=== PATIENT | male | born 1985 | race Caucasian/White ===

== ENCOUNTER 2019-01-13 08:28 | Emergency (ER) | payer OTHER ==
[2019-01-13 08:43] VITALS: BP 133/92
[2019-01-13] MEDS ORDERED: Ibuprofen TAB* 600 MG PO ONE (09:02)
[2019-01-13] MEDS ORDERED: Tetan/Diph/Pertus SYR(Tdap)* 0.5 ML SYR(BOOSTRIX) use SYR contains LATEX IM ONE (09:04)
--- NOTE | 2019-01-13 09:27 | UC ---
Laceration HPI - HPI Summary HPI Summary: WHILE AT WORK TODAY PATIENT WAS COMING DOWN A LADDER WITH A BOX BRACKET IN HIS HAND WHEN IT GOT CAUGHT ON THE CEILING AND HE SUSTAINED A LACERATION TO HIS RIGHT INDEX FINGER. UNKNOWN DATE OF LAST TETANUS. - History Of Current Complaint Chief Complaint: UCLaceration Stated Complaint: FINGER LAC Time Seen by Provider: 01/13/19 09:01 Hx Obtained From: Patient Laceration Location: Finger - RIGHT INDEX Mechanism Of Injury: Sharp Trauma Onset/Duration: Sudden Onset, Lasting Hours, Still Present Severity: Moderate Pain Intensity: 5 Pain Scale Used: 0-10 Numeric Aggravating Factors: Movement Related History: Occupational Injury, Dominant Hand Right - Allergies/Home Medications Allergies/Adverse Reactions: Allergies Allergy/AdvReac Type Severity Reaction Status Date / Time ciprofloxacin Allergy Swelling Verified 01/13/19 08:44 Home Medications: Home Medications Ibuprofen 400 mg PO ONCE PRN 01/13/19 [History Confirmed 01/13/19] PMH/Surg Hx/FS Hx/Imm Hx Previously Healthy: Yes Other History Of: Negative For: HIV, Hepatitis B, Hepatitis C - Surgical History Surgical History: Yes Surgery Procedure, Year, and Place: left hernia repair as a child, bunion 2009 with f/u 2010 - Family History Known Family History: Negative: Seizure Disorder, Blood Disorder - Social History Alcohol Use: Occasionally Alcohol Amount: M-Th 2/day FRI-SUN 6/day Substance Use Type: Marijuana Smoking Status (MU): Never Smoked Tobacco - Immunization History Most Recent Influenza Vaccination: never Most Recent Tetanus Shot: UTD Review of Systems All Other Systems Reviewed And Are Negative: Yes Constitutional: Positive: Negative Skin: Positive: Other - LACERATION RIGHT INDEX FINGER Respiratory: Positive: Negative Cardiovascular: Positive: Negative Gastrointestinal: Positive: Negative Musculoskeletal: Positive: Edema Physical Exam Triage Information Reviewed: Yes Appearance: Well-Appearing, No Pain Distress, Well-Nourished Vital Signs: Initial Vital Signs Temp 99.5 F 01/13/19 08:39 Pulse 69 01/13/19 08:39 Resp 18 01/13/19 08:39 BP 133/92 01/13/19 08:39 Pulse Ox 99 01/13/19 08:39 Vital Signs Reviewed: Yes Eyes: Positive: Conjunctiva Clear ENT: Positive: Hearing grossly normal Neck: Positive: Supple Respiratory: Positive: No respiratory distress, No accessory muscle use Cardiovascular: Positive: Pulses Normal Abdomen Description: Positive: Soft Musculoskeletal: Positive: No Edema, ROM Limited @ - RIGHT INDEX FINGER Neurological: Positive: Alert Psychological: Positive: Age Appropriate Behavior Skin: Positive: Other - 3CM LINEAR LACERATION VOLAR ASPECT RIGHT INDEX FINER OVERLYING PROXIMAL PHALANX Laceration Repair - Laceration Repair 1 Description: Linear Laceration Size After Repair: Length (cm) - 3CM, Width (mm) - 0MM, Depth (mm) - 3MM Modified For Repair: No Type Injection: Digital Anesthesia Used: 1.0% Lido Irrigation With Pressure Irrigation Device: Yes Closure Material: Sutures - 8 SIMPLE INTERRUPTED SUTURES Closure Method: Single Layer Suture Of: Skin Suture Type: Prolene - 5-0 Laceration Course/Dx - Course/Dx Course Of Treatment: LACERATION CLEANED AND DRAPED IN STERILE FASHION. TIMEOUT COMPLETE. 8 SUTURES PLACED WITHOUT DIFFICULTY. PATIENT IS ABLE TO FLEX HIS FINGER BUT IS LIMITED LIKELY DUE TO SWELLING AND THE WOUND ITSELF. ADVISED TO ENSURE THAT HE HAS FULL RANGE OF MOTION HIS WOUND IS HEALING AND IF NOT HE IS TO FOLLOW-UP WITH ORTHOPEDICS. COUNSELED ON FINDINGS AND SYMPTOMS OF INFECTION TO LOOK FOR. TDAP BOOSTED TODAY. - Diagnosis Provider Diagnosis: Laceration of right index finger Discharge ED - Sign-Out/Discharge Documenting (check all that apply): Patient Departure All imaging exams completed and their final reports reviewed: No Studies - Discharge Plan Condition: Stable Disposition: HOME Patient Education Materials: Laceration (ED) Forms: *Work Release Referrals: [facility] [Outside] - If Needed Abbey Hastings MD [Medical Doctor] - If Needed Additional Instructions: KEEP DRESSINGS IN PLACE AND DRY FOR THE FIRST 24 HRS. THEN YOU MAY REMOVE THE DRESSING AND GENTLY CLEANSE WITH SOAP AND WATER. PAT DRY AND RE-BANDAGE. APPLY THIN LAYER ANTIBIOTIC OINTMENT UNDER BANDAGE FOR FIRST 3-4 DAYS ONLY. I RECOMMEND AVOIDING NEOMYCIN CONTAINING PRODUCTS THEY CAN BE HIGHLY ALLERGENIC. CHANGE BANDAGE DAILY AND NEEDED IF IT BECOMES SOILED OR WET. SEEK FOLLOW-UP IF YOU DEVELOP SPREADING REDNESS OF THE SKIN, PURULENT DRAINAGE, FEVER, INCREASED PAIN OR ANY OTHER CONCERNING SYMPTOMS. RETURN TO HAVE YOUR 8 SUTURES REMOVED IN 10 DAYS IF YOU DO NOT HAVE FULL ROM BE SURE TO FOLLOW-UP WITH ORTHOPEDICS. TETANUS IMMUNIZATION GIVEN (TDAP): You have been given an immunization against tetanus. Please record this in your records. In general, a booster is needed only once every 10 years. The tetanus shot protects against tetanus or "lockjaw," which is a complication of certain wound infections (the tetanus shot cannot protect against the actual infection). The immunization site may become warm and red due to local reaction. If this occurs, apply warm compresses and take aspirin or ibuprofen to reduce inflammation and discomfort. Return for evaluation if the reaction becomes severe. CALL THE NUMBER BELOW FOR ASSISTANCE IN ESTABLISHING WITH A PCP An additional resource available to assist in finding the appropriate physician for your health care needs is the [facility] ([facility]). You may contact them by calling [phone]. - Billing Disposition and Condition Condition: STABLE Disposition: Home
[2019-01-13] MEDS ORDERED: Lidocaine 1% MPF ** 5 ML VIAL INJ ONE (09:34)
== END 2019-01-13 10:30 | disposition home or self-care (01) ==
LOC: UCEAST 08:28
DX: S61.210A Laceration without foreign body of right index finger without damage to nail, initial encounter (principal); Z23 Encounter for immunization; Z88.1 Allergy status to other antibiotic agents; W26.8XXA Contact with other sharp object(s), not elsewhere classified, initial encounter; Y92.9 Unspecified place or not applicable; Y99.0 Civilian activity done for income or pay
CPT/HCPCS: 12002; 90471; 90715; 99212; A9270-GY; G0463

== ENCOUNTER 2019-05-29 07:13 | Day surgery (SDC) | payer OTHER ==
[~2019-05-29 07:13] MED LIST: Acetaminophen TAB* 325 MG PO ONE; Buffered Lidocaine 1% SYRIN* 1 ML/SYRINGE INTRADERM ONE; Lactated Ringers 1000 ML Bag* 1,000 ML IV SCH
[2019-05-29] MEDS ORDERED: Acetaminophen TAB* 325 MG ONE (07:35)
[2019-05-29] MEDS ORDERED: Midazolam* 1 MG/ML 2 ML VIAL (2 MG) ONE (08:11)
[2019-05-29] MEDS ORDERED: fentaNYL* 50 MCG/ML 2 ML VIAL (100 MCG VIAL) ONE (08:11)
[2019-05-29] MEDS ORDERED: HYDROmorphone INJ1* 1 MG/ML SYRINGE IV PRN (08:24)
[2019-05-29] MEDS ORDERED: Ibuprofen TAB* 600 MG PO PRN (08:24)
[2019-05-29] MEDS ORDERED: Acetaminophen IV 1GM/100ML * 1,000 MG/100 ML VIAL IVPB ONE (08:24)
[2019-05-29] MEDS ORDERED: Naloxone* 0.4 MG/ML 1 ML VIAL IV PRN (08:24)
[2019-05-29] MEDS ORDERED: Ondansetron INJ* 2 MG/ML VIAL ONE (08:38)
[2019-05-29] MEDS ORDERED: Propofol* 10 MG/ML 20 ML BTL ONE (08:38)
[2019-05-29] MEDS ORDERED: Dexamethasone IV* 4 MG/ML 1 ML (4 MG) ONE (08:38)
[2019-05-29] MEDS ORDERED: Lidocaine 2% PF * 5 ML VIAL ONE (08:38)
[2019-05-29] MEDS ORDERED: Acetaminophen IV 1GM/100ML * 100 ML ONE (08:49)
[2019-05-29] MEDS ORDERED: Ibuprofen PED LIQ 100 MG/5 ML UDC ONE (09:28)
[2019-05-29 10:06] VITALS: BP 123/99
--- NOTE | 2019-05-29 13:31 | OP ---
DATE OF OPERATION: 05/28/19 - SDS DATE OF : 83 SURGEON: Han Fong MD PRE-OP DIAGNOSIS: Hypertrophied tonsils and asymmetrical tonsil. POST-OP DIAGNOSIS: Hypertrophied tonsils and asymmetrical tonsil. OPERATIVE PROCEDURE: Tonsillectomy. BRIEF HISTORY: This is a pleasant 34-year-old gentleman with markedly enlarged tonsil on one side, somewhat suspicious because it was firm. He elected for surgical resection. Plus he had had symptoms of obstructive sleep apnea. Intolerant of , we decided to do bilateral tonsillectomy. DESCRIPTION OF PROCEDURE: The patient was taken to the operating room; general anesthesia was given, and the patient was intubated. Tongue, mandible, and soft palate were retracted. Coblator was used to remove the tonsils. Once hemostasis was obtained, the patient was awakened and sent to the recovery room in stable condition. Instrument and sponge count correct. Blood loss minimal. [id number] #: [id number] MTDD
== END 2019-05-29 10:19 | disposition home or self-care (01) ==
LOC: OR 07:13
PROVIDERS: ATTEND Otolaryngology
DX: J35.1 Hypertrophy of tonsils (principal); R13.10 Dysphagia, unspecified; G47.33 Obstructive sleep apnea (adult) (pediatric)
CPT/HCPCS: 88304; A9270-GY; J1100; J2250; J2405; J2704; J3010